=== PATIENT | male | born 1995 ===

== ENCOUNTER 2016-06-16 16:22 | Emergency (ER) | payer OTHER ==
[2016-06-16 18:07] VITALS: BP 116/55
--- NOTE | 2016-06-16 18:11 | UC ---
General HPI - HPI Summary HPI Summary: The patient comes in today for: 1. "Hard to focus," "feeling like I am drunk without being drunk," "just feels 'tilty,'" "Basically every time I look around it is difficult to focus." He states that he was reading the same sentence at school over and over and it was not sinking in." Onset: 2 days. Palliative/provocative: Nothing makes it better or worse. Quality: Difficulty with concentration. Region: [employer] Severity: No pain. Time: Constant. Associated symptoms: He states that he has a problem with anxiety. Previous evaluation: None. Previous treatment: None. Fevers: None. Neck pain: None. Travel: None. Head injury: None. Previous event: None. Sleeping: Normal for the last 2 days--before that--sporadic. * - History of Current Complaint Chief Complaint: UCGeneralIllness Stated Complaint: LIGHTHEADED Time Seen by Provider: 06/16/16 18:05 Hx Obtained From: Patient - Allergy/Home Medications Allergies/Adverse Reactions: Allergies Allergy/AdvReac Type Severity Reaction Status Date / Time No Known Allergies Allergy Verified 06/16/16 17:39 Home Medications: Home Medications Ibuprofen TAB* [Advil TAB*] 400 mg PO ONCE 06/16/16 [History Confirmed 06/16/16] Pseudoephedrine HCl [Decongestant] 30 mg PO ONCE 06/16/16 [History Confirmed ] PMH/Surg Hx/FS Hx/Imm Hx Previously Healthy: Yes Endocrine History Of: Denies: Diabetes, Thyroid Disease, Hyperthyroidism, Hypothyroidism, Dyslipidemia Cardiovascular History Of: Denies: Cardiac Disorders, Hypertension, Pacemaker/ICD, Myocardial Infarction , Congestive Heart Failure, Atrial Fibrillation, Deep Vein Thrombosis, Bleeding Disorders Respiratory History Of: Denies: COPD, Asthma, Bronchitis, Pneumonia, Pulmonary Embolism GI/ History Of: Denies: Gastroesophageal Reflux, Ulcer, Gastrointestinal Bleed, Gall Bladder Disease, Kidney Stones, Diverticulitis, Renal Disease, Urosepsis Neurological History Of: Denies: TIA, CVA, Dementia, Seizures, Migraine Psychological History Of: Reports: Anxiety Denies: Depression, Bipolar Disorder, Schizophrenia, Post Traumatic Stress Disorder Cancer History Of: Denies: Lung Cancer, Colorectal Cancer, Breast Cancer, Prostate Cancer, Cervical Cancer Other History Of: Negative For: HIV, Hepatitis B, Hepatitis C, Anticoagulant Therapy - Surgical History Surgical History: None - Family History Known Family History: Negative: Cardiac Disease, Hypertension - Social History Occupation: Student Alcohol Use: Weekly Alcohol Amount: 3 times a week Substance Use Type: None Smoking Status (MU): Never Smoked Tobacco - Immunization History Most Recent Influenza Vaccination: 9034-9013 Review of Systems Constitutional: Negative Skin: Negative Eyes: Negative ENT: Negative Respiratory: Negative Cardiovascular: Negative Gastrointestinal: Negative Genitourinary: Negative All Other Systems Reviewed And Are Negative: Yes Physical Exam Triage Information Reviewed: Yes Appearance: Well-Appearing, No Pain Distress, Well-Nourished Vital Signs: Initial Vital Signs Temp 98.2 F 06/16/16 17:34 Pulse 59 06/16/16 17:34 Resp 16 06/16/16 17:34 BP 127/68 06/16/16 17:34 Pulse Ox 100 06/16/16 17:34 Vital Signs Reviewed: Yes Eyes: Positive: Conjunctiva Clear. Negative: Discharge ENT: Positive: Hearing grossly normal, Pharynx normal. Negative: Pharyngeal erythema, Nasal congestion, Nasal drainage, TM bulging, TM dull, TM red, Tonsillar swelling, Tonsillar exudate Dental: Negative: Gross Decay/Caries @, Dental Fracture @ Neck: Positive: Supple, Nontender, No Lymphadenopathy. Negative: Nuchal Rigidity Respiratory: Positive: Lungs clear, No respiratory distress, No accessory muscle use. Negative: Crackles, Wheezing Cardiovascular: Positive: RRR, No Murmur Abdomen Description: Positive: Nontender, No Organomegaly, Soft. Negative: Distended, Guarding, Peritoneal Signs Musculoskeletal: Positive: Strength Intact, ROM Intact, No Edema Neurological: Positive: Alert, Muscle Tone Normal, Other: - Neurologic exam: Inspection: No fasciculations. Muscular tone: Normal Strength: Upper and lower extremities symmetrical and appropriate for age. Cranial nerves: II through XII were normal. Reflexes: Upper extremity: biceps: 2+/2 x 2, triceps: 2+/2 x 2, brachioradialis: 2+/2 x 2 Lower extremity: Patellar: 2+ /2 x 2, Achilles: 2+/2 x 2 Gait: Normal Coordination: Upper: Finger to nose and alternating palms on thighs: Normal Lower: Heel along diaz: Normal Rhomberg: Normal Psychological: Positive: Age Appropriate Behavior, Consolable Skin: Negative: rashes, breakdown Course/Dx - Course Course Of Treatment: Patient was told that I did not find anything on his physical exam to explain his symptoms. He was told that I think he may have a subclinical viral infection. He should take care of himself (keep well- hydrated and 7-8 hours of sleep) avoid stressing (physical mental) and be re- evaluated in 2-3 days. If he gets worse, he is to be seen again. - Differential Dx - Multi-Symptom Provider Diagnoses: Viral syndrome Discharge - Discharge Plan Condition: Stable Disposition: HOME Patient Education Materials: Fatigue (ED), Dizziness (ED), Viral Syndrome (ED) Additional Instructions: Please be seen in 1-2 days to see how well you are doing. If you get worse, please be seen sooner. If you are back to normal, you can let go of the follow- up evaluation.
== END 2016-06-16 18:34 | disposition home or self-care (01) ==
LOC: UCCORT 16:22 → EDBD 16:22 → UCCORT 18:34
DX: B34.9 Viral infection, unspecified (principal)
CPT/HCPCS: 99202; G0463